=== PATIENT | male | born 1970 | race Caucasian/White ===

== ENCOUNTER 2019-11-20 08:54 | Day surgery (SDC) | payer MEDICAID ==
[~2019-11-20] VITALS: Ht 180.3 cm; Wt 132.1 kg
[2019-11-20 09:23] VITALS: BP 135/84; PULSE 78; TEMP 98.2
[2019-11-20] MEDS ORDERED: SEROQUEL300 MG PO (09:29)
[2019-11-20] MEDS ORDERED: WELLBUTRIN XL300 M1 PO (09:29)
[2019-11-20] MEDS ORDERED: WELLBUTRIN XL150 MG PO (09:30)
[2019-11-20] MEDS ORDERED: RT ADVAIR 228 DISKUS IH (09:30)
[2019-11-20] MEDS ORDERED: PRIL40 PO (09:31)
[2019-11-20] MEDS ORDERED: IPRATROPIUM BROM3 M1 IH (09:31)
[2019-11-20] MEDS ORDERED: TOPROL XL100 MG PO (09:32)
[2019-11-20] MEDS ORDERED: TYLENOL 500MG500 MG PO (09:32)
[2019-11-20] MEDS ORDERED: LYRICA 25MG CAP25 MG PO (09:33)
[2019-11-20] MEDS ORDERED: LYRICA 150MG C150 MG PO (09:34)
[2019-11-20] MEDS ORDERED: NEURONTIN600 MG/TAB PO (09:34)
[2019-11-20] MEDS ORDERED: ZOFRAN ODT4 MG PO (09:34)
[2019-11-20] MEDS ORDERED: FIORICET 325 MG1 TA1 PO (09:35)
[2019-11-20] MEDS ORDERED: VITAMIN D 50,1.25 MG PO (09:37)
[2019-11-20] MEDS ORDERED: CYANOCOBAL1000 MCG/1 IM (09:38)
[2019-11-20] MEDS ORDERED: BOTOX 100100 U/VIAL IM (09:39)
[2019-11-20] MEDS ORDERED: ADVIL200 MG PO (09:40)
[2019-11-20] MEDS ORDERED: MAGNESIUM OXID500 MG PO (09:40)
[2019-11-20] MEDS ORDERED: FLEXERIL5 MG PO (09:41)
--- NOTE | 2019-11-20 09:43 | NUR ---
TO RM AT 0904- CALL LIGHT IN REACH AT BEDSIDE AND HAD MEDICATION LIST.
[2019-11-20 10:40] VITALS: BP 129/83; PULSE 72; TEMP 97.8
--- NOTE | 2019-11-20 10:40 | NUR ---
TO RM 6 PER CART FROM ENDOSCOPY. ALERT ORIENTED X3, TALKING TO STAFF AND HIS . AMBULATED TO RECLINER. RECEIVED MUFFIN AND WATER.
[2019-11-20 10:55] VITALS: BP 129/87; PULSE 65
--- NOTE | 2019-11-20 10:55 | NUR ---
ATE 100% AND TOLERATED WELL. DR GIVENS INTO TALK WITH PATIENT AND HIS .
--- NOTE | 2019-11-20 11:05 | NUR ---
DISCONTINUED IV AND INT- CATHETER INTACT
--- NOTE | 2019-11-20 11:15 | NUR ---
RECEIVED DISCHARGE INSTRUCTIONS AND VERBALIZED UNDERSTANDING. PATIENT GETTING DRESSED.
--- NOTE | 2019-11-20 11:23 | NUR ---
DISCHARGED PER WC BY NURSING STAFF TO PRIVATE CAR IN CARE OF -KATHARINE.
== END 2019-11-20 11:24 | disposition home or self-care (01) ==
LOC: SDCO 08:54
DX: K29.30 Chronic superficial gastritis without bleeding (principal); K21.9 Gastro-esophageal reflux disease without esophagitis; I10 Essential (primary) hypertension; G47.33 Obstructive sleep apnea (adult) (pediatric); J44.9 Chronic obstructive pulmonary disease, unspecified; G89.29 Other chronic pain; F41.9 Anxiety disorder, unspecified; F32.9 Major depressive disorder, single episode, unspecified; F43.10 Post-traumatic stress disorder, unspecified; E66.9 Obesity, unspecified; Z88.0 Allergy status to penicillin; Z79.82 Long term (current) use of aspirin; Z87.891 Personal history of nicotine dependence
CPT/HCPCS: J2704; J7120

== ENCOUNTER → 2019-12-30 | Outpatient (CLI) | payer MEDICAID ==
[~2019-12-30] MED LIST: ADVIL200 MG PO; BOTOX 100100 U/VIAL IM; CYANOCOBAL1000 MCG/1 IM; FIORICET 325 MG1 TA1 PO; FLEXERIL5 MG PO; IPRATROPIUM BROM3 M1 IH; LYRICA 150MG C150 MG PO; LYRICA 25MG CAP25 MG PO; MAGNESIUM OXID500 MG PO; NEURONTIN600 MG/TAB PO; PRIL40 PO; RT ADVAIR 228 DISKUS IH; SEROQUEL300 MG PO; TOPROL XL100 MG PO; TYLENOL 500MG500 MG PO; VITAMIN D 50,1.25 MG PO; WELLBUTRIN XL150 MG PO; WELLBUTRIN XL300 M1 PO; ZOFRAN ODT4 MG PO
== END ==
LOC: MHCPAIN 12:27
DX: M47.817 Spondylosis without myelopathy or radiculopathy, lumbosacral region (principal); M54.5 Low back pain; M53.3 Sacrococcygeal disorders, not elsewhere classified; G89.29 Other chronic pain; M54.2 Cervicalgia
CPT/HCPCS: G0463